=== PATIENT | male | born 1970 | race Two or more races ===

== ENCOUNTER 2019-07-15 03:00 | Emergency (ER) | payer MEDICAID ==
[~2019-07-15] VITALS: Ht 175.3 cm; Wt 113.6 kg
[2019-07-15 03:20] LABS: BASOPHILS # (AUTO) 0.1 X10'3 (0-0.2); BASOPHILS % (AUTO) 1.1 % (0-1); EOSINOPHILS # (AUTO) 0.1 X10'3 (0-0.9); EOSINOPHILS % (AUTO) 1.1 % (0-6); HEMATOCRIT 44.4 % (42.0-52.0); HEMOGLOBIN 14.9 g/dl (14.0-17.9); LYMPHOCYTES # (AUTO) 2.2 X10'3 (1.1-4.8); LYMPHOCYTES % (AUTO) 16.4 % (21-51); MEAN CORPUSCULAR HEMOGLOBIN 30.1 PG (27.0-31.0); MEAN CORPUSCULAR HGB CONC 33.5 g/dL (33.0-36.5); MEAN PLATELET VOLUME 8.7 FL (7.4-10.4); MONOCYTES # (AUTO) 0.7 X10'3 (0-0.9); MONOCYTES % (AUTO) 5.5 % (2-12); NEUTROPHILS # (AUTO) 10.1 X10'3 (1.8-7.7); NEUTROPHILS % (AUTO) 75.9 % (42-75); PLATELET COUNT 307 X10'3 (140-440); RED BLOOD COUNT 4.94 X10'6 (4.70-6.10); RED CELL DISTRIBUTION WIDTH 13.5 % (11.5-14.5); WHITE BLOOD COUNT 13.3 X10'3 (4.5-11.0)
[2019-07-15 03:28] LABS: ALANINE AMINOTRANSFERASE 79 U/L (12-78); ALBUMIN 4.2 G/DL (3.4-5.0); ALBUMIN/GLOBULIN RATIO 1.1 (1.1-1.5); ALKALINE PHOSPHATASE 98 IU/L (46-116); ANION GAP 11 (8-16); ASPARTATE AMINO TRANSFERASE 45 U/L (10-37); BILIRUBIN,TOTAL 0.5 MG/DL (0.1-1.0); BLOOD UREA NITROGEN 21 MG/DL (7-18); BUN/CREATININE RATIO 21.2 (5.4-32.0); CALCIUM 8.9 MG/DL (8.5-10.1); CHLORIDE 105 MMOL/L (99-107); CREATININE 0.99 MG/DL (0.60-1.10); GLUCOSE 190 MG/DL (70-104); POTASSIUM 3.8 MMOL/L (3.5-5.1); SODIUM 141 MMOL/L (135-145); eGFR 81 ML/MIN
[2019-07-15 03:36] LABS: ETHANOL < 0.010 GM/DL (0.0-0.010)
[2019-07-15] MEDS ORDERED: METO-395 PO (04:05)
[2019-07-15] MEDS ORDERED: LISI-600 PO (04:05)
[2019-07-15] MEDS ORDERED: ASPI-1265 PO (04:05)
[2019-07-15] MEDS ORDERED: ATOR80TA PO (04:05)
[2019-07-15] MEDS ORDERED: QUET-1 PO (04:05)
[2019-07-15] MEDS ORDERED: TICA90TA PO (04:05)
[2019-07-15] MEDS ORDERED: QUEtiapine 25mg tablet PO STA (04:11)
--- NOTE | 2019-07-15 04:12 | NUR ---
PTS HOME MEDICATIONS SENT TO PHARMACY.
[2019-07-15] MEDS ORDERED: quetiapine 100mg tablet PO STA (04:23)
[2019-07-15 04:31] LABS: URINE AMPHETAMINE SCREEN POSITIVE (Neg); URINE BARBITUATE SCREEN NEGATIVE (Neg); URINE BENZODIAZEPINES SCREEN NEGATIVE (Neg); URINE CANNABINOID SCREEN NEGATIVE (Neg); URINE COCAINE SCREEN POSITIVE (Neg); URINE METHADONE SCREEN NEGATIVE (Neg); URINE OPIATE SCREEN NEGATIVE (Neg); URINE PHENCYCLIDINE SCREEN NEGATIVE (Neg)
[2019-07-15 08:24] LABS: CLARITY,URINE TURBID (Clear); COLOR,URINE YELLOW (Yellow); PH,URINE 5.5 (4.8-8.0); UA COLLECTION TYPE CLN CATCH MIDSTREAM
[2019-07-15 08:25] LABS: GLUCOSE, URINE 100 mg/dl (Neg); KETONES,URINE NEGATIVE (Neg); LEUKOCYTE ESTERASE ,URINE NEGATIVE (Neg); NITRITES, URINE NEGATIVE (Neg); OCCULT BLOOD,URINE NEGATIVE (Neg); PROTEIN,URINE NEGATIVE (Neg); UROBILINOGEN,URINE 0.2 E.U/dL (0.2-1.0)
[2019-07-15 08:27] LABS: AMORPHOUS URATES 3+; BACTERIA,URINE NONE SEEN /HPF (Neg); CAL OXALATE CRYSTALS 1+ /HPF (NEGATIVE); MUCUS STRANDS NONE SEEN /LPF (Neg); RBC,URINE NONE SEEN /HPF (0-2); SQUAMOUS EPITHELIAL CELL,UR NONE SEEN /LPF (FEW); WBC,URINE 0-4 /HPF (0-4)
--- NOTE | 2019-07-15 11:25 | NUR ---
Break RN; Pt resting quietly on gurney with eyes closed. Pt on left side covered with blanket. No acute distress observed.
--- NOTE | 2019-07-15 12:46 | NUR ---
Pt moved from Room 8 in the ER to room 25 in [facility], in the company of REach and SYSTEMS TRAINER without incident, was given his lunch immediately upon arrival, no s/s of agitation observed
[2019-07-15] MEDS: metoprolol succinate 25mg (24-HOUR) SR. Tablet PO SCH (17:06)
[2019-07-15] MEDS: aspirin 81mg tab.chew PO SCH (17:06)
[2019-07-15] MEDS: lisinopril 20mg tablet PO SCH (17:07)
--- NOTE | 2019-07-15 18:39 | NUR ---
Received report and assumed pt care from LORA Jonas. Pt is currently awake and alert in bed, lying on his back attempting to rest. He denies pain or discomfort at this time. He is in direct line of sight of the nursing station.
[2019-07-15] MEDS: atorvastatin 20mg tablet PO SCH (20:24)
[2019-07-15] MEDS: ticagrelor 90mg tablet PO SCH (20:24)
--- NOTE | 2019-07-15 20:34 | NUR ---
The patient is sleeping at this time on his back but is easily arousable. 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 He reports abdominal discomfort, states that he has been constipated. He is in direct line of sight of the nursing station.
[2019-07-15] MEDS ORDERED: quetiapine 100mg tablet PO SCH (21:00)
--- NOTE | 2019-07-15 22:30 | NUR ---
The patient is currently sleeping on his right side in bed with visible respirations. He got up to use the bathroom at 2100 and reported that he had two bowel movements. He verbalized that he thinks he has an infection somewhere in his bowels and should be on medication for it. He does not show sign of pain or discomfort at this time and is in direct line of sight of the nursing station.
--- NOTE | 2019-07-16 00:29 | NUR ---
The patient is currently sleeping on his back with visible respirations. He does not show sign of pain or discomfort. He is in direct line of sight of the nursing station.
--- NOTE | 2019-07-16 02:27 | NUR ---
Pt is currently lying in bed sleeping on his left side with visible respirations. He does not show signs of pain or distress. He is in direct line of sight of the nursing station.
--- NOTE | 2019-07-16 03:49 | NUR ---
The patient is currently sleeping on his back with visible respirations. He is independent of repositioning and does not show sign of pain or distress. He is in direct line of sight of the nursing station.
--- NOTE | 2019-07-16 05:12 | NUR ---
The patient is currently sleeping on his right side with visible respirations. He does not show sign of pain or discomfort. He is in direct line of sight of the nursing station.
[2019-07-16] MEDS ORDERED: aspirin 81mg tab.chew PO SCH (08:00)
[2019-07-16] MEDS ORDERED: metoprolol succinate 25mg (24-HOUR) SR. Tablet PO SCH (08:00)
[2019-07-16] MEDS ORDERED: lisinopril 20mg tablet PO SCH (08:00)
[2019-07-16] MEDS: aspirin 81mg tab.chew PO SCH (08:36)
[2019-07-16] MEDS: ticagrelor 90mg tablet PO SCH ×2 (08:37→20:14)
[2019-07-16] MEDS: lisinopril 20mg tablet PO SCH (08:37)
[2019-07-16] MEDS: metoprolol succinate 25mg (24-HOUR) SR. Tablet PO SCH (08:37)
--- NOTE | 2019-07-16 10:59 | NUR ---
PT HAS A 4CM SUPERFICIAL ABRASION TO THE POSTERIOR ASPECT OF HIS RIGHT ELBOW WITH MINIMAL BLEEDING. AREA CLEANED WITH ALCOHOL WIPE AND BANDAGED. RN AWARE.
[2019-07-16] MEDS ORDERED: OLANZapine 2.5MG tablet PO ONE (13:20)
--- NOTE | 2019-07-16 13:22 | NUR ---
pt was up eating lunch. He stated he is feeling extremely parinod with feelings that people are out to get him. He is asking for help. Dr. Jaquez gave a on time order for zyprexa PO 10 mg
--- NOTE | 2019-07-16 13:43 | NUR ---
Pt stated he doesn't know why we are trying to give him all these medication. First he stated he can't take Zyprexa and then admitted that he can, he just didn't want to. He stated he will not take anything else that is new until he meet with a [facility] doctor.
[2019-07-16] MEDS ORDERED: hydrOXYzine 25 MG tablet PO PRN (13:45)
--- NOTE | 2019-07-16 14:27 | NUR ---
Patient appears to be resting comfortably in bed with his eyes closed.
--- NOTE | 2019-07-16 16:27 | NUR ---
pt resting on leftside with eyes closed respirations measured at 16.
--- NOTE | 2019-07-16 19:49 | NUR ---
pt is resting in bed, no s/s of distress noted.
[2019-07-16] MEDS: atorvastatin 20mg tablet PO SCH (20:14)
[2019-07-16] MEDS: quetiapine 100mg tablet PO SCH (20:15)
--- NOTE | 2019-07-16 20:56 | NUR ---
pt is sleeping, no s/s of distress noted. rr unlabored.
--- NOTE | 2019-07-16 22:43 | NUR ---
pt is sleeping, no s/s of distress noted. rr unlabored.
--- NOTE | 2019-07-17 00:21 | NUR ---
pt continues to sleep, rr even and unlabored.
--- NOTE | 2019-07-17 03:02 | NUR ---
pt appears to be asleep, no s/s of distress noted.
--- NOTE | 2019-07-17 05:58 | NUR ---
pt appears to be asleep, no s/s of distress noted.
--- NOTE | 2019-07-17 07:00 | NUR ---
pt is sleeping
--- NOTE | 2019-07-17 08:00 | NUR ---
pt woke up and had breakfast and took his meds without an issue
[2019-07-17] MEDS: aspirin 81mg tab.chew PO SCH (08:24)
[2019-07-17] MEDS: metoprolol succinate 25mg (24-HOUR) SR. Tablet PO SCH (08:24)
[2019-07-17] MEDS: ticagrelor 90mg tablet PO SCH ×2 (08:24→20:50)
[2019-07-17] MEDS: lisinopril 20mg tablet PO SCH (08:24)
--- NOTE | 2019-07-17 09:00 | NUR ---
pt is laying on his back
--- NOTE | 2019-07-17 10:00 | NUR ---
pt is ambulating to bathroom. no concerns at this time
--- NOTE | 2019-07-17 11:00 | NUR ---
pt is awake. laying in bed.
--- NOTE | 2019-07-17 12:00 | NUR ---
pt is upset cause he states someone told him that cause of his insurance he had to go back to [facility]. pt states he will refuse to go back to [facility]
--- NOTE | 2019-07-17 13:00 | NUR ---
pt is asking for his prn meds but when offered the med he refused
--- NOTE | 2019-07-17 14:00 | NUR ---
pt is getting very upset about his poss transfer to [facility]. pt was told he is not being transferred to [facility] at this time
--- NOTE | 2019-07-17 15:00 | NUR ---
pt is getting worked up and pacing. he is raising his voice about being transferred to . he states he has not seen a doctor since he has been here. rn informed pt once again he is not being tranferred and that dr hcakraborty saw the pt this morning and [facility] will be here soon to re-eval him. security was called and one time extra dose of seroquel was given per pt's request
[2019-07-17] MEDS ORDERED: quetiapine 100mg tablet PO ONE (15:50)
--- NOTE | 2019-07-17 16:00 | NUR ---
meds seem to be helping. pt has calmed down and is resting in his bed
--- NOTE | 2019-07-17 17:08 | NUR ---
pt is resting in his bed. no concerns at this time. pt is calm
--- NOTE | 2019-07-17 18:04 | NUR ---
pt is resting in his bed
[2019-07-17] MEDS: atorvastatin 20mg tablet PO SCH (20:49)
[2019-07-17] MEDS: quetiapine 100mg tablet PO SCH (20:49)
--- NOTE | 2019-07-18 06:30 | NUR ---
RECEIVED REPORT FROM AUGUSTUS PAULINO, PT IS LYING ON LEFT SIDE SLEEPING, NO S/S OF DISTRESS, DISCOMFORT OR AGITATION, PT IN LINE OF SITE OF NURSES STATION, LORA LOPEZ AND LASHA WEST. NO NEEDS AT THIS TIME.
[2019-07-18] MEDS: lisinopril 20mg tablet PO SCH ×2 (08:00→17:26)
[2019-07-18] MEDS: metoprolol succinate 25mg (24-HOUR) SR. Tablet PO SCH (08:00)
--- NOTE | 2019-07-18 09:21 | NUR ---
DR BLOOM GIVE BRIEF UPDATE/REPORT ON PT STATUS, DR BLOOM TO EVALUATE PT.
[2019-07-18] MEDS: aspirin 81mg tab.chew PO SCH (09:23)
[2019-07-18] MEDS: ticagrelor 90mg tablet PO SCH ×2 (09:23→20:20)
--- NOTE | 2019-07-18 11:06 | NUR ---
PT WALKED TO BATHROOM AND USED SUPPLIES TO CLEAN UP, PT WANTING TO TALK TO SOLAR RESOURCE ASSESSOR BECAUSE HE HAS BEEN WAITING FOR 3 DAYS AND STILL NO BEDS AVAILABLE, WINSTON AND ALLA WITH ERNIE CALLED TO BEDSIDE PT APPEARS TO BE MORE ANXIOUS AND DECLINES ATARAX AT THIS TIME, WINSTON CALLED [facility] TO REQUEST THEY LOOK AT PT FOR ADMISSION AGAIN PREVIOUSLY NO BED AVAIL IN [facility].
--- NOTE | 2019-07-18 11:35 | NUR ---
AFTER SPEAKING WITH RN AND SECURITY, PT IS NOW BACK IN BED LYING DOWN, PT CLEANED UP AND CHANGED INTO NEW GREEN SCRUBS
--- NOTE | 2019-07-18 12:54 | NUR ---
PT WAS STANDING AT BEDSIDE APPEARING ANXIOUS, LORA LOPEZ TO BED EXPLAINED 5150 PROCESS AND AWAITING PLACEMENT AT THIS TIME, PT REPORTS HE DOES NOT WANT TO RETURN TO [facility] BUT WOULD RATHER GO TO [place], INFORMED PT TO DISCUSS HIS PLANS TO GO TO [place] AFTER DISCHARGE FROM [facility]ILITY, PT SAT DOWN IN BED AND VERBALIZED HE IS AGREEABLE TO PLAN OF CARE AND UNDERSTANDING OF [facility], GAVE PT CRAYONS AND COLORING BOOK FOR SOMETHING TO DO PT WAS INFORMED THERE IS NO TV HERE. PT WAS CALM, COOPERATIVE AND POLITE DURING INTERACTION WITH LORA LOPEZ.
--- NOTE | 2019-07-18 13:00 | NUR ---
LUNCH TRAY PLACED AT BEDSIDE, PT SITTING UP EATING NOW.
--- NOTE | 2019-07-18 13:17 | NUR ---
CALLED [facility] SPOKE WITH JESSE AND SHE WILL ASK JAMMIE REA TO COME DOWN TO EVALUATE PT AND MAKE MEDICATION RECOMMENDATIONS PT STILL WAITING FOR PLACEMENT AT THIS TIME, [facility] ALSO SPOKE WITH PT AND PT MAY HAVE FUNDS TO GET TO [place], W[facility]ON TO SPEAK WITH CASE MANAGEMENT TO DETERMINE IF PT BECOMES ELIGIBLE FOR RELEASE IF HE HAS THE NECESSARY RESOURCES/MONEY TO GET TO HIS DESTINATION SAFELY.
--- NOTE | 2019-07-18 13:28 | NUR ---
PT INFORMED KIM ONLINE PRICING [employer] TO [place] $88-$113 DEPENDING ON WHAT DAY THE PT WAS TO TRAVEL
--- NOTE | 2019-07-18 15:02 | NUR ---
PT IS SLEEPING, RESPIRATIONS SPONTANEOUS, EVEN AND UNLABORED, NO S/S OF DISTRESS, DISCOMFORT OR AGITATION AT THIS TIME, PT IN LINE OF SITE OF NURSES STATION VISIBLE TO LORA LOPEZ AND LASHA WEST.
--- NOTE | 2019-07-18 15:27 | NUR ---
PT CAME TO [facility] [place] TO ASK FOR UPDATE ON WHEN PROVIDER WILL COME SEE PT, INFORMED PT PROVIDER WAS JUST CONTACTED FOR UPDATE, PT REQUESTED MILK AND AUNG CRACKERS, GAVE PT MILK AND AUNG CRACKERS PER REQUEST. PT REMAINS CALM, COOPERATIVE AND POLITE DURING INTERACTION WITH LORA LOPEZ
--- NOTE | 2019-07-18 16:20 | NUR ---
LORA ARANA RECEIVED CALL FROM JAMMIE HALE AND WAS INFORMED HE WILL BE DOWN TO SEE PT SHORTLY.
--- NOTE | 2019-07-18 17:12 | NUR ---
PT ACCEPTED TO [facility] TO GO UP SOME TIME AFTER 1999, PT UPDATED TO PLAN AND SINCE HE IS GOING UPSTAIRS TONIGHT PROVIDER WILL NOT COME SEE DOWN IN THE ED.
--- NOTE | 2019-07-18 17:19 | NUR ---
TAY CHARGE NURSE INFORMED PT TO GO TO [facility] AFTER CHANGE OF SHIFT.
--- NOTE | 2019-07-18 19:09 | NUR ---
Patient is awake and well oriented. He exhibits a blunted affect. Patlient states recent suicidial ideation. Patient denies voices or other hallucinations. The patient tells this policy writer that he has been having lots of paranoia, he is concerned that when admitted to behavioral health that someone might strangle him in his sleep. The patient is reassured that he will be in a safe place.
--- NOTE | 2019-07-18 19:21 | NUR ---
Patient was given Atarax PO for his anxiety.
[2019-07-18] MEDS: atorvastatin 20mg tablet PO SCH (20:20)
[2019-07-18] MEDS: quetiapine 100mg tablet PO SCH (20:20)
--- NOTE | 2019-07-18 20:50 | NUR ---
Patient resting in bed. Compliant with medications. In view from nursing station.
--- NOTE | 2019-07-18 21:00 | NUR ---
Patient sitting in bed, awake, anxiety is decreased at this time.
--- NOTE | 2019-07-18 22:01 | NUR ---
Patient remains awake and well oriented. Paranoia remains. Plan is to transfer patient to behavioral health unit soon.
--- NOTE | 2019-07-18 22:57 | NUR ---
Mental Health Tech is at bedside. Patient is being prepared for transfer to the Behavioral Health Unit.
[2019-07-18 23:16] VITALS: BP 177/108
== END 2019-07-18 23:25 ==
LOC: ER 03:01
DX: R45.851 Suicidal ideations (principal); R94.6 Abnormal results of thyroid function studies; F20.9 Schizophrenia, unspecified; F15.90 Other stimulant use, unspecified, uncomplicated; Z88.2 Allergy status to sulfonamides; Z88.8 Allergy status to other drugs, medicaments and biological substances; Z79.82 Long term (current) use of aspirin; Z79.899 Other long term (current) drug therapy
CPT/HCPCS: 36415; 80053; 80305; 80320; 81001; 84443; 85025; 99285; Z7610

== ENCOUNTER 2019-07-18 17:14 | Inpatient (IN) | payer MEDICAID ==
[~2019-07-18] VITALS: Ht 175.3 cm; Wt 118.0 kg
[~2019-07-18 17:14] MED LIST: ASPI-1265 PO; ATOR80TA PO; LISI-600 PO; METO-395 PO; QUET-1 PO; TICA90TA PO
[2019-07-18] MEDS ORDERED: LORazepam 1 MG tablet PO PRN (23:30)
[2019-07-18] MEDS ORDERED: traZODone 50mg tablet PO PRN (23:30)
[2019-07-18] MEDS ORDERED: loperamide 2mg capsule PO PRN (23:30)
[2019-07-18] MEDS ORDERED: mag hydrox/Alum hydrox/simeth 30ml oral suspension PO PRN (23:30)
[2019-07-18] MEDS ORDERED: magnesium hydroxide 30ml (MOM) UD suspension PO PRN (23:30)
[2019-07-18] MEDS ORDERED: acetaminophen 325mg tablet PO PRN ×2 (23:30)
--- NOTE | 2019-07-19 02:24 | NUR ---
Nursing Progress Note: Legal hold: 5150 Client on involuntary status for GD Report received from nurse with use of SBAR Why are they here: Patient is a 49-year-old male that was brought in by police on a 5150 after he was riding a bus and demanded the business support coordinator to stop and chain puller. He reports that he had been "bleeding internally" and that someone was after him. He reports thoughts of hurting himself and states that "some people are trying to kill me". He does not know who is trying to kill him and states that they followed him all the way from [place]. He thinks that they "got hit on me". He has a history of paranoid schizophrenia and takes Seroquel. He reports he just had a stent placed and is on blood thinners currently. He reports thoughts of suicidal ideation and states that "they are going to kill me anyway, I am tired of running man". He reports his last meth use was 2 days ago and states that he did it to stay awake because he is too scared to fall asleep. Denies any marijuana or tobacco use. Patient denies any other associated symptoms at this time. Patient denies any other alleviating or exacerbating factors. Assessment What has happened this shift: Pt arrived on unit 07/18 at 2315 accompanied by Everardo NGUYEN and security. Pt states he is here because he has plans to run in traffic and kill himself because "people I know are after me". I asked who these people are and he states he doesnt know their names but he sees them walking "around". Pt is able to contract for safety while he is here. Pt states he had a [place] [facility] [place] that he is walking away from because he is afraid these people will find him there. Pt is unable to state why these people would be interested in harming him or how he knows them. Pt appears to be responding to internal stimuli. S/I, H/I: SI with plan to run in traffic A/VH: pt is evasive and doesnt answer whether he is seeing or hearing things but appears to be ris Sleep: sleeping well this shift ADL's: independant Group attendance: no evening groups Were meds taken: meds given in ER before he came up Any med S/E non reported Mental Status Exam Appearance: pt is wearing green scrubs, short hair, clean shaven, had shower when he arrived on unit Eye contact: fair Behavior: cooperative Speech:normal rate and rhythm Mood: hopeless depressed Affect: broad Thought process: linear, gaurded paranoid Thought Content: talking about being followed by people who are looking to kill him, delusions Cognition: a/ox4 Insight: fair Judgment: poor Interventions PRN's used: None Therapeutic interventions: Established rapport, 1:1 therapeutic assessment, maintained safe therapeutic milieu, provided active listening with positive reinforcement, reality orientation as needed, provided medication administration/education/monitoring as needed, Q15 safety checks. Restraints/seclusion/emergency medication: N/A Justification of Continued Inpatient Treatment: Patient needs interruption of current crisis and medication adjustment in a safe therapeutic environment until stable.
--- NOTE | 2019-07-19 03:06 | NUR ---
admit note Pt arrived from ER at 2315 from [facility] accompanied by Everardo NGUYEN and security. Pt is here for DTS due to s/i. Pt has plan to run in traffic, hang himself, or jump off a bridge. He is paranoid that people are after him. He asked [employer] driver to call the police because he was paranoid that people on the bus were plotting to kill him. Pt reports he had stents placed 3-4 months ago after having a heart attack.
[2019-07-19 07:07] LABS: CHOL/HDL RATIO 3.3 (0.00-4.99); CHOLESTEROL 92 MG/DL (0-200); HDL CHOLESTEROL 28 MG/DL (35-60); LDL CHOLESTEROL 50 MG/DL (50-100); TRIGLYCERIDES 177 MG/DL (20-135)
[2019-07-19 07:35] VITALS: BP 117/83
[2019-07-19 07:41] LABS: HEMOGLOBIN A1C 7.2 % (4.5-6.2)
[2019-07-19] MEDS ORDERED: quetiapine 100mg tablet PO SCH (08:00)
[2019-07-19] MEDS: aspirin 81mg tab.chew PO SCH (08:29)
[2019-07-19] MEDS: metoprolol succinate 25mg (24-HOUR) SR. Tablet PO SCH (08:29)
[2019-07-19] MEDS: lisinopril 20mg tablet PO SCH (08:31)
[2019-07-19] MEDS: ticagrelor 90mg tablet PO SCH ×2 (08:32→21:06)
--- NOTE | 2019-07-19 12:18 | NUR ---
DM consult: Pt with A1c 7.2. Per H&P pt states he has DM and does not take meds. Pt admit on 5150 with paranoid delusions, DM education not appropriate at this time. Pt currently on a regular diet however would benefit from diet change to CHO controlled to better manage BG levels during admission. Pt currently not on hyperglycemic protocol with one BG level of 177. Will continue to follow. Addendum: 07/19/19 at [address] Amended: Links added.
--- NOTE | 2019-07-19 18:00 | NUR ---
Nursing Progress Note: Legal hold: 5150 Client on involuntary status for GD Report received from nurse with use of SBAR Why are they here: Patient is a 49-year-old male that was brought in by police on a 5150 after he was riding a bus and demanded the combustion analyst to stop and lathe puller. He reports that he had been "bleeding internally" and that someone was after him. He reports thoughts of hurting himself and states that "some people are trying to kill me". He does not know who is trying to kill him and states that they followed him all the way from [place]. He thinks that they "got hit on me". He has a history of paranoid schizophrenia and takes Seroquel. He reports he just had a stent placed and is on blood thinners currently. He reports thoughts of suicidal ideation and states that "they are going to kill me anyway, I am tired of running man". He reports his last meth use was 2 days ago and states that he did it to stay awake because he is too scared to fall asleep. Denies any marijuana or tobacco use. Patient denies any other associated symptoms at this time. Patient denies any other alleviating or exacerbating factors. Assessment Patient awake alert and suspicious of staff and placenent of his personal belongings; however, patient mood improved throughout the shift. Patient paticipating socializing and attending groups. Pt. still states he feels depressed and hopeless due to life stressors. Pt.'s A1C was 7.2 and pt. started on CBG checks AC/HS. Has not met protocol yet. Seroqul schedule changed to HS. S/I, H/I: SI with plan to run in traffic A/VH: Pt. denies. Sleep: napped x1 on day shift. ADL's: independant Group attendance: yes and participated. Were meds taken: Yes Any med S/E non reported Mental Status Exam Appearance: Clean and wearing green scrubs Eye contact: fair Behavior: cooperative, attending groups. Speech:normal rate and rhythm Mood: Pt. states he is hopeless and depressed Affect: incongruent with mood, pt. appears euthymic. Thought process: some paranoia this AM, but pt. was linear. Thought Content: Main concern is that his pride is affected by being homeless. He does not want anyone's lluvia. Cognition: A/Ox4 Insight: fair Judgment: poor Interventions PRN's used: None Therapeutic interventions: Established rapport, 1:1 therapeutic assessment, maintained safe therapeutic milieu, provided active listening with positive reinforcement, reality orientation as needed, provided medication administration/education/monitoring as needed, Q15 safety checks. Restraints/seclusion/emergency medication: N/A Justification of Continued Inpatient Treatment: Patient needs interruption of current crisis and medication adjustment in a safe therapeutic environment until stable.
[2019-07-19 19:28] VITALS: BP 161/105
--- NOTE | 2019-07-19 19:58 | NUR ---
Contacted OCP Dr Jesus regarding pts elevated blood pressure of 161/105, reviewed pts hx and current meds and states no further orders at this time and continue to monitor.
[2019-07-19] MEDS: atorvastatin 20mg tablet PO SCH (21:06)
[2019-07-19] MEDS: quetiapine 100mg tablet PO SCH (21:07)
--- NOTE | 2019-07-19 21:10 | NUR ---
Nursing Progress Note: Legal hold: 5150 Client on involuntary status for GD Report received from nurse with use of SBAR Why are they here: Patient is a 49-year-old male that was brought in by police on a 5150 after he was riding a bus and demanded the brim buster to stop and rod puller and coiler. He reports that he had been "bleeding internally" and that someone was after him. He reports thoughts of hurting himself and states that "some people are trying to kill me". He does not know who is trying to kill him and states that they followed him all the way from [place]. He thinks that they "got hit on me". He has a history of paranoid schizophrenia and takes Seroquel. He reports he just had a stent placed and is on blood thinners currently. He reports thoughts of suicidal ideation and states that "they are going to kill me anyway, I am tired of running man". He reports his last meth use was 2 days ago and states that he did it to stay awake because he is too scared to fall asleep. Denies any marijuana or tobacco use. Patient denies any other associated symptoms at this time. Patient denies any other alleviating or exacerbating factors. Assessment Pt was sitting in the hallway at change of shift. States he feels unsafe around too many people. He continues to endorse s/i if he gets out of here and states "I dont know, run into traffic or something, I don't know what will happen if I feel unsafe." Pt states he had some involvement with gangs and drugs although he was not in the gang he is fearful that some of these people are after him. He states he was on probation and that recently ended so he bought a ticket to [place] but doesn't know why [place], he already paid rent for this month in [place] but doesn't feel safe to go back there. Pt doesn't know where he will end up he is just sure he doesn't want to go back to [place]. Pts BP was elevated and he appeared anxious and fidgeting in his chair, he refused PRN for anxiety. S/I, H/I: SI with plan to run in traffic A/VH: Pt denies. Sleep: states slept well ADL's: independent Group attendance: no evening group Were meds taken: Yes Any med S/E: none reported Mental Status Exam Appearance: Clean and wearing green scrubs Eye contact: fair Behavior: cooperative. Speech:normal rate and rhythm Mood: Pt. states he is hopeless and depressed, Anxious Affect: Constricted Thought process: linear, paranoid Thought Content: talking about figuring out a place to live and people being after him Cognition: A/Ox4 Insight: fair Judgment: poor Interventions PRN's used: None Therapeutic interventions: Established rapport, 1:1 therapeutic assessment, maintained safe therapeutic milieu, provided active listening with positive reinforcement, reality orientation as needed, provided medication administration/education/monitoring as needed, Q15 safety checks. Restraints/seclusion/emergency medication: N/A Justification of Continued Inpatient Treatment: Patient needs interruption of current crisis and medication adjustment in a safe therapeutic environment until stable.
[2019-07-20] MEDS: lisinopril 20mg tablet PO SCH (07:42)
[2019-07-20] MEDS: aspirin 81mg tab.chew PO SCH (07:42)
[2019-07-20] MEDS: metFORMIN 500mg tablet PO SCH ×2 (07:42→17:52)
[2019-07-20] MEDS: ticagrelor 90mg tablet PO SCH ×2 (07:42→21:04)
[2019-07-20] MEDS: metoprolol succinate 25mg (24-HOUR) SR. Tablet PO SCH (07:42)
[2019-07-20 08:55] VITALS: BP 110/75
--- NOTE | 2019-07-20 12:16 | NUR ---
PSYCHOSOCIAL ASSESSMENT Haroon is a 49 y/o single male who was initially placed on 5150 by [facility] for danger to self and others. [employer] Best business insight and analytics manager called 911 to report a suicidal passenger. Haroon reported he was suicidal and considering suicide by hanging himself or jumping off a bridge. While in the ED he continued to be paranoid and delusional regarding people following him. He was also responding to auditory and visual hallucinations. Today Haroon reported he left his apartment in [place] and does not want to return. He reported he has been traveling since the end of June. He noted he was in [place] and was on the bus when he asked the business insight and analytics manager to stop the bus and call for an ambulance. 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 He reported he was discharged from [facility] about a month ago and no longer has to stay in [place]. He reported he thinks he would like to go to [place]. He reported a long history of schizoaffective disorder with several hospitalizations. EMILY Flores Addendum: 07/20/19 at 1219 by Lexy Nguyen SS Amended: Links added.
--- NOTE | 2019-07-20 17:20 | NUR ---
Nursing Progress Note Legal hold: 5150 Client on involuntary status for GD Report received from nurse, ELIZABETH Burton with use of SBAR Why are they here: Patient is a 49-year-old male that was brought in by police on a 5150 after he was riding a bus and demanded the manager business to stop and candy puller. He reports that he had been "bleeding internally" and that someone was after him. He reports thoughts of hurting himself and states that "some people are trying to kill me". He does not know who is trying to kill him and states that they followed him all the way from [place]. He thinks that they "got hit on me." He has a history of paranoid schizophrenia and takes Seroquel. He reports he just had a stent placed and is on blood thinners currently. He reports thoughts of suicidal ideation and states that "they are going to kill me anyway, I am tired of running man". He reports his last meth use was 2 days ago and states that he did it to stay awake because he is too scared to fall asleep. Denies any marijuana or tobacco use. Patient denies any other associated symptoms at this time. Patient denies any other alleviating or exacerbating factors. Assessment What happened this shift: Pt up at start of shift asking for coffee. Pt given coffee. Pt in and out of the nurses charting room asking questions about discharging and other questions throughout the shift. He will be discharging tomorrow night and is concerned he might not have enough of his cardiac medications while traveling. S/I, H/I: SI due to paranoia w/o a plan A/VH: Pt. denies. Sleep: Up all shift ADL's: Independent Group attendance: Yes Were Meds taken: Yes Any med S/E: None reported or observed Mental Status Exam Appearance: Clean; showered Eye contact: Good Behavior: Anxious, cooperative Speech: Somewhat pressured at times Mood: Euthymic Affect: Bright Thought process: Circumstantial Thought Content: Worried that he will not have enough cardiac Meds when he discharges from here. Cognition: A/Ox4 Insight: fair Judgment: poor Interventions PRN's used: None Therapeutic interventions: Therapeutic communication and active listening, constant redirection required, provided medication administration/education/monitoring as needed, Q15 safety checks. Restraints/seclusion/emergency medication: N/A Justification of Continued Inpatient Treatment: Patient is telling staff he is leaving tomorrow. Seroquel has been increased he states he is feeling better.
[2019-07-20 20:00] VITALS: BP 139/89
[2019-07-20] MEDS: atorvastatin 20mg tablet PO SCH (21:04)
[2019-07-20] MEDS: quetiapine 100mg tablet PO SCH (21:05)
--- NOTE | 2019-07-21 00:26 | NUR ---
Nursing Progress Note: Legal hold: 5150 Client on involuntary status for DTS Report received from nurse with use of SBAR: Hermelindo RN Why are they here: Patient was brought into the ER by police on a 5150 after he was riding a bus and demanded the party bus driver to stop and pull over machine operator. He reported that he had been "bleeding internally," and that someone was after him. He also reported thoughts of hurting himself and stated, "Some people are trying to kill me". He did not know who was trying to kill him, and reported that they followed him all the way from [place]. Pt. has a history of paranoid schizophrenia. He reported that he just had a stent placed and is on blood thinners currently. Pt's toxicology screen was positive for methamphetamines, and he reported his last meth use was 2 days ago. Assessment What has happened this shift: Pt. sitting in his room at the beginning of the shift, interacting periodically with his room mate. This medical writer introduces self, and pt. animatedly greets this medical writer, stating, "I'm leaving tomorrow to go to [place]!" This medical writer questioned pt. what he planned to do there and he reported that he has no plan, states animatedly, "I'm going! That's the plan!" Pt. attends snack, and 1:1 completed later at bedside, pt. continues to present as cooperative, slightly restless, and guarded (he frequently makes jokes, as if in an attempt to avoid answering questions). Pt. currently denies S/I, H/I, and A/V/FIORE. However, pt. appears to be somewhat internally preoccupied at times AEB talking aloud to himself, appearing to use different accents at times. Pt. may also possibly continue to experience some paranoid delusions because he is adamant about not returning in the direction he came from, and traveling to [place] instead. 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 Pt's thought process is circumstantial, however he is able to be redirected. S/I, H/I: Denies A/VH: Denies, however appears to be somewhat internally preoccupied at times AEB talking aloud to himself, appearing to use different accents at times Sleep: Pt. reports that he sleeps well with scheduled Seroquel ADL's: Independent Group attendance: Pt. attends HS snack Were meds taken: Yes Any med S/E: None Mental Status Exam Appearance: Neat, and appropriately dressed in hospital attire Eye contact: Good, somewhat intense at times Behavior: Cooperative, slightly restless, and guarded Speech: Loud and intense at times, pt. speaks several different accents Mood: Pleasant Affect: Animated Thought process: Circumstantial, however pt. able to be redirected Thought Content: Possible ongoing paranoid delusions, and preoccupation with desire to discharge tomorrow and get to [place]. Cognition: A&O X4 Insight: Poor Judgment: Poor to fair Interventions PRN's used: None Therapeutic interventions: Introduced self and established rapport, maintained a safe and therapeutic environment, ensured contract for safety, provided clear and simple instructions, reinforced reality, monitored behaviors and need for intervention, and maintained Q 15min safety checks. Restraints/seclusion/emergency medication: N/A Justification of Continued Inpatient Treatment: Pt. continues to require a safe and therapeutic environment. Per ÁLVARO Cleveland no additional medication changes will be made, however pt. needs to meet with dialysis social worker regarding discharge plans.
[2019-07-21 08:00] VITALS: BP 130/82
[2019-07-21] MEDS: aspirin 81mg tab.chew PO SCH (08:29)
[2019-07-21] MEDS: ticagrelor 90mg tablet PO SCH ×2 (08:29→20:39)
[2019-07-21] MEDS: metFORMIN 500mg tablet PO SCH ×2 (08:29→17:38)
[2019-07-21] MEDS: metoprolol succinate 25mg (24-HOUR) SR. Tablet PO SCH (08:29)
[2019-07-21] MEDS: lisinopril 20mg tablet PO SCH (08:29)
[2019-07-21] MEDS ORDERED: ATOR20TA66 PO (10:37)
[2019-07-21] MEDS ORDERED: ASPI-1265 PO (10:37)
[2019-07-21] MEDS ORDERED: METF-950 PO (10:37)
[2019-07-21] MEDS ORDERED: QUET100T33 PO (10:37)
[2019-07-21] MEDS ORDERED: METO-395 PO (10:37)
[2019-07-21] MEDS ORDERED: LISI-600 PO (10:37)
[2019-07-21] MEDS ORDERED: TICA90TA PO (10:37)
--- NOTE | 2019-07-21 13:19 | NUR ---
BUS TICKET Assisted Haroon with purchasing bus ticket to leave on Sat Jul 23 at 9:10 AM. He wanted a bus ticket to [place]. [facility] and [facility] on his behalf with his money. Total came to $98. EMILY Flores
--- NOTE | 2019-07-21 13:53 | NUR ---
Nursing Progress Note: Legal hold: 5150 Client on involuntary status for DTS Report received from nurse with use of SBAR: Josephine RN Why are they here: Patient was brought into the ER by police on a 5150 after he was riding a bus and demanded the bushel girl to stop and car clerk pullman. He reported that he had been "bleeding internally," and that someone was after him. He also reported thoughts of hurting himself and stated, "Some people are trying to kill me". He did not know who was trying to kill him, and reported that they followed him all the way from [place]. Pt. has a history of paranoid schizophrenia. He reported that he just had a stent placed and is on blood thinners currently. Pt's toxicology screen was positive for methamphetamines, and he reported his last meth use was 2 days ago. Assessment What has happened this shift: Pt denies depression, anxiety, SI/HI/AH/VH. Pt states, "I'll be alright." Pt presents as animated and hyperverbal. He makes frequent jokes, sings in the hallway and likes to speak with a southern accent at times. Pt states that he will not return to his apartment in [facility] even though he paid the rent and the bills for this month. Pt states it's not safe there. Pt said that he was stuck there before but now he is off of parole and can go where he wants. Pt stated that he was in [facility] for [facility]. Pt plans on taking a bus to [place] where he will stay in a penitentiary until he gets his SSI money after the first. He then intends to go to [place] where he states he wishes to work in the [employer]. DEE Pugh went and purchased a [employer] bus ticket with pt's money. Plan is for him to discharge Thursday at 0910. S/I, H/I: Pt denies A/VH: Pt denies Sleep: Pt slept 7 hours per noc shift report. ADL's: Independent Group attendance: Yes Were meds taken: Yes Any med S/E: None noted or reported. Mental Status Exam Appearance: Neat, clean. Eye contact: Good Behavior: Restless, sings in the bowers, socializes with staff and peers. Speech: Clear, audible, pressured, hyperverbal Mood: Elevated Affect: Animated Thought process: Linear Thought Content: Focused on discharge, future oriented with plans to go to [place] and then [place]. Cognition: A/O X4 Insight: Poor Judgment: Fair Interventions PRN's used: None Therapeutic interventions: 1:1 assessment, establishment of rapport, active listening, therapeutic conversation, medication administration/education/monitoring, limit setting, redirection, Q 15min safety checks. Restraints/seclusion/emergency medication: N/A Justification of Continued Inpatient Treatment: Plan is for pt has to discharge on Thursday. SW went to station and purchased a [employer] bus ticket with pt's money to [place] on Thursday07/23/19 at 0910.
[2019-07-21 20:00] VITALS: BP 146/88
[2019-07-21] MEDS: atorvastatin 20mg tablet PO SCH (20:39)
[2019-07-21] MEDS: quetiapine 100mg tablet PO SCH (20:41)
--- NOTE | 2019-07-21 23:06 | NUR ---
Nursing Progress Note: Legal hold: Voluntary Client on voluntary status for DTS Report received from nurse with use of SBAR: LORA Rick Why are they here: Patient was brought into the ER by police on a 5150 after he was riding a bus and demanded the business practices officer to stop and bleach boiler puller. He reported that he had been "bleeding internally," and that someone was after him. He also reported thoughts of hurting himself and stated, "Some people are trying to kill me". He did not know who was trying to kill him, and reported that they followed him all the way from [place]. Pt. has a history of paranoid schizophrenia. He reported that he just had a stent placed and is on blood thinners currently. Pt's toxicology screen was positive for methamphetamines, and he reported his last meth use was 2 days ago. Assessment What has happened this shift: Pt. up in the hallway at the beginning of the shift, interacting appropriately, however quite animatedly with others. He continues to present as hypomanic and restless, denies the need for an anxiolytic. Pt. shows this magnetic tape typewriter operator an abrasion on his rt. forearm, skin at area appears CDI, no s/s of increased redness or infection. Pictures obtained and placed in chart, will continue to monitor. 1:1 completed at bedside, pt. continues to present as cooperative, slightly restless, and guarded with conversation. He makes frequent jokes and talks periodically in an exaggerated southern accent. Pt. continues to deny any S/I, A/V/FIORE, and no delusional statements made this shift. He continues to endorse a plan to travel to [place], collect his SSI, and then go to [place]. Pt. denies having any family or friends available to him, states, "My family is all in [place]. I don't see them much, my mom is there but my dad . I had to forgive my mom, she put me in some bad situations growing up." He does not elaborate on what any of these bad situations were, however continues on to talk about his siblings who live there as well. Speech continues to be loud, intense, and circumstantial, but pt. remains able to be redirected. Pt. signed voluntary this shift, and reports understanding regarding the plan for him to leave Thursday on the bus. S/I, H/I: Denies A/VH: Denies, does not appear internally preoccupied this shift Sleep: Pt. reports that he sleeps well with scheduled Seroquel ADL's: Independent Group attendance: Pt. reports he attend groups Were meds taken: Yes Any med S/E: None Mental Status Exam Appearance: Freshly showered, and appropriately dressed in hospital attire Eye contact: Good, somewhat intense at times Behavior: Cooperative, restless, and guarded. Appears hypomanic Speech: Loud and intense, however is able to be redirected. Pt. speaks in an exaggerated southern accent at times Mood: Pleasant Affect: Animated Thought process: Circumstantial, however pt. able to be redirected Thought Content: Some restlessness and preoccupation with desire to discharge Cognition: A&O X4 Insight: Poor to fair Judgment: Fair Interventions PRN's used: None Therapeutic interventions: Maintained a safe and therapeutic environment, ensured contract for safety, provided clear and simple instructions, monitored abrasion on rt. fore arm and obtained pictures, monitored behaviors and need for intervention, and maintained Q 15min safety checks. Restraints/seclusion/emergency medication: N/A Justification of Continued Inpatient Treatment: Pt. continues to require a safe and therapeutic environment. Per ÁLVARO Cleveland he will discharge Thursday, bus ticket has aric purchased by group social worker.
[2019-07-22 08:00] VITALS: BP 133/85
[2019-07-22] MEDS: metFORMIN 500mg tablet PO SCH (08:01)
[2019-07-22 08:02] VITALS: BP_SYST 133
[2019-07-22] MEDS: lisinopril 20mg tablet PO SCH (08:02)
[2019-07-22] MEDS: ticagrelor 90mg tablet PO SCH (08:02)
[2019-07-22] MEDS: aspirin 81mg tab.chew PO SCH (08:02)
[2019-07-22] MEDS: metoprolol succinate 25mg (24-HOUR) SR. Tablet PO SCH (08:02)
--- NOTE | 2019-07-22 16:00 | NUR ---
Nursing Progress Note: Legal hold: 5150 Client on involuntary status for DTS Report received from nurse with use of SBAR: LORA Espinosa Why are they here: Patient was brought into the ER by police on a 5150 after he was riding a bus and demanded the business quality assurance analyst to stop and pulley man. He reported that he had been "bleeding internally," and that someone was after him. He also reported thoughts of hurting himself and stated, "Some people are trying to kill me". He did not know who was trying to kill him, and reported that they followed him all the way from [place]. Pt. has a history of paranoid schizophrenia. He reported that he just had a stent placed and is on blood thinners currently. Pt's toxicology screen was positive for methamphetamines, and he reported his last meth use was 2 days ago. Assessment What has happened this shift: Pt was up for breakfast and took his meds. Pt is hyperverbal, laughs, sings, and jokes with staff and peers. Pt has many requests and will not wait for one person to assist him but will go and ask multiple staff members the same thing. Pt can be intrusive at times. Pt is perseverative. Pt is noncompliant with diabetic diet, he repeatedly requests candy and snacks which are high in carbs and sugar despite education. Pt maintained an elevated mood for most of the shift until learning that there may be an issue with getting his heart medications filled here in [facility] as he has [facility]. Pt claims that he brought mediations in with him, demanding to know where they went. No medications on inventory list, pharmacy was called, he has no meds stored down there. This RN went through pt's backpack and belongings to verify that there were no medications here. Pt has become loud and argumentative and is perseverating on his medications being lost. DEE, PA, community product specialist, and charge nurse aware of the situation. S/I, H/I: Pt denies A/VH: Pt denies Sleep: Pt slept 7.5 hours per noc shift report. ADL's: Independent Group attendance: Yes Were meds taken: Yes Any med S/E: None noted or reported. Mental Status Exam Appearance: Neat, clean. Eye contact: Good Behavior: Hypomanic, demanding at times, Speech: Clear, loud, pressured, hyperverbal Mood: Elevated then angry Affect: Animated, angry Thought process: Perseverative Thought Content: Focused on discharge, future oriented with plans to go to [place] and then [place], angry and upset that there may be a problem with him acquiring his heart medications during his travels, insistent that he brought medications with him to this hospital and they were lost. Cognition: A/O X4 Insight: Poor Judgment: Poor Interventions PRN's used: None Therapeutic interventions: 1:1 assessment, active listening, therapeutic conversation, medication administration/education/monitoring, limit setting, redirection, reality orientation, Q 15min safety checks. Restraints/seclusion/emergency medication: N/A Justification of Continued Inpatient Treatment: Plan is for pt has to discharge tomorrow. He has a [employer] bus ticket to [place] for tomorrow morning.
--- NOTE | 2019-07-22 16:27 | NUR ---
Discharge Presenting Issues: Pt's scheduled to d/c, SS informed of difficulties to fill pt's meds via [facility] but unclear as to why. Interventions: SS consulted w/[facility], meds orders faxed to [facility] @ [facility]. SS had t/c w/[facility] pharmacy, per t/c [facility] is unable to fill meds as our prescribers are not authorized by [facility] plan to prescribe meds to pt. SS had t/c w/ [facility] @ [phone], spoke w/[place], per t/c, there is a restrictions on prescribers who are out of the area and that the restrictions can be lifted only by a Supervisor Claims @ [facility]. SS requested to speak w/a PM, one was not available but [place] will have one rt p/c to discuss lifting the restrictions. SS asked that a PM rt p/c and speak w/our Ch RN, left nursing station's number. Per consultation w/Ch RN, they were able to locate pt's home meds and therefore pt would only need his pscyhotropic meds, SS had t/c with [facility] pharmacy, per t/c they can fill the pscyhotropic. SS picked up med for pt. Plan: Pt to d/c to the [facility] via cab. Addendum: 07/22/19 at 1705 by Mila Maldonado SS Amended: Links added.
--- NOTE | 2019-07-22 17:42 | NUR ---
Pt discharged to the [facility] at 1740. He was picked up by a cab, ambulated off of the unit to lobby accompanied by PCT and security. All belongings returned including home meds and new medication Seroquel which was filled at [facility] and picked up by SW. Pt expressed understanding of discharge instructions.
== END 2019-07-22 17:43 | disposition short-term general hospital (02) | DRG 760 ==
LOC: ADULT MH 22:27
PROVIDERS: ADMIT Psychiatry & Neurology Psychiatry; ATTEND Psychiatry & Neurology Psychiatry
DX: F22 Delusional disorders (principal); R45.851 Suicidal ideations; E11.9 Type 2 diabetes mellitus without complications; E78.00 Pure hypercholesterolemia, unspecified; F32.9 Major depressive disorder, single episode, unspecified; I25.10 Atherosclerotic heart disease of native coronary artery without angina pectoris; I10 Essential (primary) hypertension; Z59.0 Homelessness; E78.5 Hyperlipidemia, unspecified; Z87.891 Personal history of nicotine dependence; Z95.5 Presence of coronary angioplasty implant and graft; Z88.1 Allergy status to other antibiotic agents; Z88.8 Allergy status to other drugs, medicaments and biological substances; Z79.82 Long term (current) use of aspirin; Z79.899 Other long term (current) drug therapy; Z81.3 Family history of other psychoactive substance abuse and dependence
CPT/HCPCS: 36415; 80061; 82948; 83036; 87081